=== PATIENT | female | born 1985 | race Caucasian/White ===

== ENCOUNTER 2022-10-15 07:30 | Day surgery (SDC) | payer OTHER ==
[~2022-10-15 07:30] MED LIST: KETO10TA2 PO
== END 2022-10-15 22:35 | disposition home or self-care (01) ==
LOC: CIR.AMB 07:30
PROVIDERS: ATTEND Obstetrics & Gynecology
DX: Z30.2 Encounter for sterilization (principal); Z64.1 Problems related to multiparity; Z20.822 Contact with and (suspected) exposure to COVID-19

== ENCOUNTER 2023-11-08 12:44 | Emergency (ER) | payer OTHER ==
[~2023-11-08] VITALS: Ht 170.2 cm; Wt 54.4 kg
[2023-11-08] MEDS ORDERED: AUGMENTIN XR 11 EACH PO (13:25)
[2023-11-08] MEDS ORDERED: PEPCID AC20 MG PO (13:25)
[2023-11-08] MEDS ORDERED: PRILOSEC OTC20 MG PO (13:25)
[2023-11-08] MEDS ORDERED: ONDANSETRON HCL 2 MG/ML VIAL IV STA (14:41)
[2023-11-08] MEDS ORDERED: METOCLOPRAMIDE HCL 5 MG/ML VIAL IM STA (14:41)
[2023-11-08] MEDS ORDERED: FAMOtidine 10 MG/ML (4ML VIAL) IV STA (14:41)
[2023-11-08 15:20] LABS: HEMATOCRIT 38.2 % (36.0-45.00); HEMOGLOBIN 12.9 g/dL (12.0-15.00); MEAN CELL VOLUME 80.2 fL (80.00-100.00); MEAN CORPUSCULAR HEMOGLOBIN 27.1 pg (27.00-32.0); MEAN CORPUSCULAR HGB CONC 33.8 g/dl (32.0-36.0); PLATELET COUNT 197 K/uL (150-450); RED BLOOD COUNT 4.77 M/uL (4.00-6.00); RED CELL DISTRIBUTION WIDTH 12.6 % (11.5-14.5)
[2023-11-08 15:41] LABS: CALCIUM 8.9 mg/dL (8.5-10.1); CREATININE SERUM 0.73 mg/dL (0.55-1.02); GFR 89.7; POTASSIUM 3.63 mEq/L (3.5-5.1)
[2023-11-08 16:30] LABS: URINE APPEARANCE Cloudy; URINE BILIRRUBIN Negative (NEGATIVE); URINE BLOOD Negative; URINE COLOR Dark Yellow; URINE GLUCOSE Negative (NEGATIVE); URINE LEUKOCYTE Moderate; URINE NITRATE Negative; URINE PROTEIN Negative (NEGATIVE); URINE UROBILINOGEN 0.2 E.U./dl
[2023-11-08 16:34] LABS: URINE EPITHELIAL CELLS 81.4 uL (0.0-38.8); URINE RBC 3.3 uL (0.0-20.8); URINE WBC 109.4 uL (0.0-23.2)
== END 2023-11-08 16:35 | disposition home or self-care (01) ==
LOC: ER 12:45
PROVIDERS: General Practice
DX: K29.70 Gastritis, unspecified, without bleeding (principal)

== ENCOUNTER 2024-01-24 12:55 | Emergency (ER) | payer OTHER ==
[~2024-01-24] VITALS: Ht 170.2 cm; Wt 56.7 kg
[~2024-01-24 12:55] MED LIST changes: +AUGMENTIN XR 11 EACH PO; +PEPCID AC20 MG PO; +PRILOSEC OTC20 MG PO
[2024-01-24] MEDS ORDERED: 0.9 % SODIUM CHLORIDE 500 ML IV ONE (14:45)
[2024-01-24 15:21] LABS: HEMATOCRIT 36.9 % (36.0-45.00); HEMOGLOBIN 12.7 g/dL (12.0-15.00); MEAN CELL VOLUME 80.5 fL (80.00-100.00); MEAN CORPUSCULAR HEMOGLOBIN 27.7 pg (27.00-32.0); MEAN CORPUSCULAR HGB CONC 34.4 g/dl (32.0-36.0); PLATELET COUNT 244 K/uL (150-450); RED BLOOD COUNT 4.59 M/uL (4.00-6.00); RED CELL DISTRIBUTION WIDTH 12.9 % (11.5-14.5)
[2024-01-24 15:44] LABS: CALCIUM 9.1 mg/dL (8.5-10.1); CREATININE SERUM 0.81 mg/dL (0.55-1.02); GFR 79.56; POTASSIUM 4.38 mEq/L (3.5-5.1)
[2024-01-24] MEDS ORDERED: KETOROLAC TROMETHAMINE 30 MG VIAL IV ONE (18:15)
[2024-01-24] MEDS ORDERED: DICLOFENAC SODI50 MG PO (18:19)
[2024-01-24] MEDS ORDERED: KETOROLAC TROMETHAMINE 30 MG VIAL ONE (18:34)
== END 2024-01-24 18:54 ==
LOC: ER 12:57
PROVIDERS: Nurse Practitioner Family
DX: R59.0 Localized enlarged lymph nodes (principal)
CPT/HCPCS: 36415; 74177; Q9965

== ENCOUNTER 2024-12-29 12:59 | Emergency (ER) | payer OTHER ==
[~2024-12-29] VITALS: Ht 170.2 cm; Wt 56.7 kg
[~2024-12-29 12:59] MED LIST changes: +DICLOFENAC SODI50 MG PO
[2024-12-29 13:18] VITALS: BP 139/90; O2SAT 99
[2024-12-29] MEDS ORDERED: 0.9 % SODIUM CHLORIDE 1,000 ML IV STA (13:34)
[2024-12-29] MEDS ORDERED: FAMOTIDINE/PF 20 MG/2 ML VIAL IV ONE (13:45)
[2024-12-29] MEDS ORDERED: SUCRALFATE 1 G TABLET PO ONE (13:45)
[2024-12-29 13:56] LABS: BASO % 0.6 % (0.1-1.2); EOS # 0.07 (0.04-0.54); EOS % 0.7 % (0.7-7.0); LYMPH # 1.63 (1.18-3.74); LYMPH % 17.1 % (19.3-53.1); MEAN PLATELET VOLUME 10.30 fl (9.4-12.4); MONO # 0.67 (0.24-0.82); MONO % 7.0 % (4.7-12.5); NEUT # 7.10 (1.56-6.13); NEUT % 74.3 % (34.0-71.1); RED CELL DISTRIBUTION WIDTH 12.2 % (11.6-14.4)
[2024-12-29 14:25] LABS: ALT/SGPT 14.0 U/L (12-78); AST/SGOT 13.0 U/L (15-37); BILIRUBIN TOTAL 0.26 mg/dL (0.3-1.2); BUN CREA RATIO 16.0 (7.0-25.0); CREATININE SERUM 0.81 mg/dL (0.55-1.02); GFR 79.13; GLOBULINA 3.2 G/DL (2.4-3.5); GLUCOSE FASTING 117.0 mg/dL (65-100); OSMOLALITY SERUM 284.0 MOSM/KG (275-295)
[2024-12-29 14:48] LABS: URINE APPEARANCE Clear; URINE BILIRRUBIN Negative (NEGATIVE); URINE BLOOD Negative; URINE COLOR Yellow; URINE GLUCOSE Negative (NEGATIVE); URINE KETONE Trace (NEGATIVE); URINE LEUKOCYTE Negative; URINE NITRATE Negative; URINE PROTEIN Negative (NEGATIVE); URINE UROBILINOGEN 0.2 E.U./dl
[2024-12-29 14:53] LABS: URINE BACTERIA 275.9 uL (0.0-1933); URINE EPITHELIAL CELLS 12.9 uL (0.0-38.8); URINE RBC 2.6 uL (0.0-20.8); URINE WBC 6.1 uL (0.0-23.2)
[2024-12-29 15:02] LABS: URINE CAST 0.29 uL (0.0-1.40)
[2024-12-29] MEDS ORDERED: KETOROLAC TROMETHAMINE 30 MG VIAL IV ONE (18:00)
[2024-12-29] MEDS ORDERED: METHYLPREDNISOLONE SOD SUCC 125 MG VIAL IV ONE (18:00)
[2024-12-29] MEDS ORDERED: CARAFATE1 GM PO (18:50)
[2024-12-29] MEDS ORDERED: PEPCID AC20 MG PO (18:50)
== END 2024-12-29 19:16 | disposition home or self-care (01) ==
LOC: ER 13:07
PROVIDERS: Emergency Medicine
DX: K29.70 Gastritis, unspecified, without bleeding (principal)